=== PATIENT | male | born 1960 | race Caucasian/White ===

== ENCOUNTER 2017-09-30 07:44 | Day surgery (SDC) | payer OTHER ==
[2017-09-30] MEDS ORDERED: D5 LR 1000 ML 1,000 ML IV ONE (07:51)
[2017-09-30] MEDS ORDERED: NS 1000 ML 1,000 ML ONE (07:59)
[2017-09-30] MEDS ORDERED: DIPRIVAN VIAL 20 ML ONE (09:53)
[2017-09-30 10:40] VITALS: BP 106/69
== END 2017-09-30 10:45 | disposition home or self-care (01) ==
LOC: SURG1 07:44
PROVIDERS: ATTEND Internal Medicine Gastroenterology
PROC: 0DBH8ZX Excision of Cecum, Via Natural or Artificial Opening Endoscopic, Diagnostic (ICD-10-PCS; principal; 2017-09-30 08:00)
PROC: 0DJD8ZZ Inspection of Lower Intestinal Tract, Via Natural or Artificial Opening Endoscopic (ICD-10-PCS; principal; 2017-09-30 08:00)
DX: Z12.11 Encounter for screening for malignant neoplasm of colon (principal); K63.5 Polyp of colon; K64.0 First degree hemorrhoids; Z86.010 Personal history of colon polyps; Z80.0 Family history of malignant neoplasm of digestive organs
CPT/HCPCS: A4217; J3490; J7120

== ENCOUNTER → 2017-10-21 | Outpatient (CLI) | payer OTHER ==
[2017-09-30 10:40] VITALS: BP 106/69
--- NOTE | 2017-10-21 14:39 | MG ---
Examination: Bilateral diagnostic mammogram. Clinical history: Right breast lump, retroareolar. Technique: Digital CC and MLO views of both breasts were obtained. Computer aided detection analysis was performed and used during the interpretation. Comparison: None available. Findings: The breasts are composed predominantly of adipose tissue. There is a flame shaped area of fibroglandular tissue present in the retroareolar region of the right breast, consistent with gynecomastia. No suspicious mass, area of architectural distortion or suspicious cluster of microcalcifications is noted. Impression: 1. Unilateral right sided gynecomastia. No mammographic evidence of malignancy. BI-RADS category 2-benign findings. Recommend clinical management. Diagnostic CAD was utilized and reviewed. * 0 (ZERO) - ASSESSMENT INCOMPLETE; ADDITIONAL IMAGING IS NEEDED. * 0C - ASSESSMENT INCOMPLETE, NEEDS ADDITIONAL IMAGING EVALUATION AND/OR PRIOR MAMMOGRAMS FOR COMPARI SON. * 1/1 (ONE) - NEGATIVE. * 2/II (TWO) - BENIGN FINDINGS. * 3/III (THREE) - PROBABLY BENIGN FINDING; SHORT INTERVAL FOLLOW-UP SUGGESTED. * 4/IV (FOUR) - SUSPICIOUS ABNORMALITY; BIOPSY SHOULD BE CONSIDERED. * 5/V - HIGHLY SUSPICIOUS OF MALIGNANCY; BIOPSY SHOULD BE PERFORMED. * 6/IV - KNOWN BIOPSY PROVEN MALIGNANCY-APPROPRIATE ACTION SHOULD BE TAKEN. A NEGATIVE X-RAY REPORT SHOULD NOT DELAY BIOPSY IF A DOMINANT OR CLINICALLY SUSPICIOUS MASS IS PRESENT; 4 TO 8 PERCENT OF CANCERS ARE NOT IDENTIFIED BY X-RAY. A NEGATIVE REPORT MAY REINFORCE THE CLINICAL IMPRESSION. ADENOSIS AND DENSE BREASTS MAY OBSCURE AN UNDERLYING NEOPLASM. Reported By:
== END ==
LOC: RAD 13:29
PROVIDERS: ATTEND Internal Medicine
DX: N63.41 Unspecified lump in right breast, subareolar (principal)
CPT/HCPCS: 77066

== ENCOUNTER → 2017-12-27 | Outpatient (CLI) | payer OTHER ==
--- NOTE | 2017-12-27 14:55 | RAD ---
HISTORY: Low back pain. History of colon cancer. Study: AP and lateral lumbar spine Comparison: CT scan from 11/08/2014 Findings: Small vestigial ribs are noted on the vertebral body at the thoracolumbar junction. This will be conner led T12 for dictation purposes. This gives the patient 5 lumbar type vertebra. Mild lateral spurrin g is noted at multiple levels. Mild facet arthropathy is noted at multiple levels with moderate at L 4/L5 and L5/S1. The sacroiliac joints are intact. There is 4-5 mm of spondylolisthesis of L5 on S1. Lbdy-fp-whiwkonh disc space narrowing is noted at L4/L5 and L5/S1. Minimal anterior spurring is pr esent at a few levels. IMPRESSION: 1. Lumbar spondylosis as described above. 2. No acute bony abnormalities are identified. Reported By:
== END ==
LOC: RAD 10:20
PROVIDERS: ATTEND Internal Medicine
DX: M54.5 Low back pain (principal); M47.896 Other spondylosis, lumbar region
CPT/HCPCS: 72100